=== PATIENT | female | born 1985 | race Asian ===

== ENCOUNTER 2017-05-27 21:52 | Emergency (ER) | payer MEDICAID ==
[~2017-05-27] VITALS: Ht 162.6 cm; Wt 75.0 kg
[~2017-05-27 21:52] MED LIST: FLUO40CA9 PO; IBUP-1222 PO; OXYC-302 PO; PREN1TAB60 PO
[2017-05-27 22:14] VITALS: BP 116/74
[2017-05-27] MEDS ORDERED: LORA2VIA4 PO (22:30)
== END 2017-05-28 00:23 | disposition home or self-care (01) ==
LOC: ED 23:21
DX: F10.120 Alcohol abuse with intoxication, uncomplicated (principal); Z90.49 Acquired absence of other specified parts of digestive tract
CPT/HCPCS: 99283

== ENCOUNTER 2018-07-30 07:20 | Emergency (ER) | payer OTHER, MEDICAID ==
[~2018-07-30] VITALS: Ht 162.6 cm; Wt 74.8 kg
[~2018-07-30 07:20] MED LIST changes: +LORA2VIA6 PO
--- NOTE | 2018-07-30 07:37 | NUR ---
PT PRESENTED TO ED WITH HEADACHES X 3 WEEKS. PT STATED SHE WAS SEEN AT [facility] THE OTHER DAY FOR THE SAME. PT STATES " IT HURTS TO THINK." PT STATES SHE HAS LEFT SIDED FACIAL NUMBNESS THAT RADIATES DOWN LEFT SIDE. PT A&OX4. PT UP WALKING AND MOVING ARMS AND LEGS WITHOUT DIFFICULTY. PT PLACED IN ROOM AND PLACED ON BP AND CONT. PULSE OXIMETER. ASSESSMENT COMPLETED. CALL LIGHT IN REACH.
[2018-07-30] MEDS ORDERED: KETOROLAC 30 MG/1 ML ONE (07:57)
[2018-07-30] MEDS ORDERED: hydrOXyzine 50MG TABLET ONE (07:58)
[2018-07-30] MEDS ORDERED: PROCHLORPERAZINE 5 MG/ML, 2ML ONE (07:58)
[2018-07-30] MEDS ORDERED: PROCHLORPERAZINE 5 MG/ML, 2ML IM ONE (08:00)
[2018-07-30] MEDS ORDERED: KETOROLAC 30 MG/1 ML IM ONE (08:00)
[2018-07-30 08:35] VITALS: BP 113/84
--- NOTE | 2018-07-30 08:35 | NUR ---
PT STATES HEADACHE OF 5/10 FROM 8/10 WHEN PT ARRIVED. MD DUKE.
== END 2018-07-30 08:59 | disposition home or self-care (01) ==
LOC: ED 07:54
DX: G44.221 Chronic tension-type headache, intractable (principal); Z91.040 Latex allergy status
CPT/HCPCS: 96372; 99283; J0780; J1885; Q0177